=== PATIENT | male | born 1940 | race Caucasian/White ===

== ENCOUNTER 2017-12-16 12:08 | Emergency (ER) | payer OTHER ==
[2017-12-16] MEDS ORDERED: SILVER NITRATE APPLICATOR 1 APPL TP ONE (12:22)
[2017-12-16 12:36] LABS: PLATELET COUNT 175 10^3/uL (150-400)
[2017-12-16 12:46] LABS: INR 2.06 (0.83-1.16); PROTIME(PATIENT) 23.3 SEC (12.0-15.0)
--- NOTE | 2017-12-16 13:00 | EDPHY ---
General Time Seen by Provider: 12/16/17 12:54 Narrative: CHIEF COMPLAINT: Nosebleed HISTORY OF PRESENT ILLNESS: Patient arrives by EMS with complaints of nosebleed. This started spontaneously at 10:30 a.m. While at rest. He reports that he "had a sneezing fit," and he started bleeding from the right nostril. He did not tasting blood , nor was he having difficulty breathing or swallowing. He applied pressure with the bleeding did not stop, thus he called 911. He does take Coumadin for atrial fibrillation. At time of examination the nasal clip has been in place for nearly 2 hr. He thinks the bleeding has stopped. He has no bleeding from any other site. He has no chest pain, shortness of breath, lightheadedness or dizziness. No dark stools or bright red blood in stool. He has had previous nosebleeds in the past that stopped with pressure alone. REVIEW OF SYSTEMS: Ten systems reviewed and are negative unless otherwise noted in the HPI PCP: [place] [facility]: [facility] PAST MEDICAL HISTORY: Prostate cancer, atrial fibrillation, traumatic brain injury to, hypertension, diskitis PAST SURGICAL HISTORY: No recent surgeries SOCIAL HISTORY: Nonsmoker. Lives independently locally FAMILY HISTORY: Noncontributory EXAMINATION General Appearance: Alert, no distress Head: normocephalic, atraumatic Eyes: Pupils equal and round, no conjunctival pallor or injection ENT, Mouth: Mucous membranes moist. There is dried blood around the right nostril. Nasal speculum exam reveals no active bleeding. The airway is widely patent without any blood in the posterior pharynx, edema of the pharynx or abnormality of the floor of the mouth. Neck: Normal inspection, supple, non-tender Respiratory: Lungs are clear to auscultation Cardiovascular: Regular rate. No murmur. Gastrointestinal: Abdomen is soft and nontender Back: non-tender, no bony abnormalities Neurological: A&O, nonfocal, normal gait Skin: Warm and dry, no rash Extremities: Nontender, no pedal edema Psychiatric: Mood and affect normal DIFFERENTIAL DIAGNOSES: Including but not limited to anterior epistaxis, posterior epistaxis, warfarin coagulopathy, hypertension, anemia MDM: 12:50 p.m. Spontaneous right-sided epistaxis that has stopped with nasal clip at this time. He is anticoagulated with warfarin. His blood pressure is slightly elevated but he normally takes his medication evenings. He has no chest pain. He has no lightheadedness, dizziness or syncope. He has no bleeding from any other site or stools. I have removed the nasal clip and will monitor him for 15 min to recheck for any bleeding. 1:30 p.m. Patient re-evaluated. He has had the nasal clip off for over 30 min and has no bleeding at this time. I do not appreciate any bleeding in the posterior pharynx either. I did offer a prophylactic nasal packing and he has declined. He would like to be discharged home. We discussed the risks, benefits and alternatives to nasal packing and he is comfortable with assuming the wrist of going home without packing, including return of epistaxis and return to the emergency department. We discussed that his blood pressure was mildly elevated and that he should discuss this with his physician as he is otherwise asymptomatic at this time. I discussed that his hemoglobin and INR are within normal limits. We discussed avoiding any manipulation of the nose, blowing of the nose. We discussed return to ED precautions should his nose bleed return. He is comfortable this plan and discharged home stable condition. SUPERVISION: Patient was independently examined, but I discussed the case with my secondary supervising physician Dr. Pina - History Smoking Status: Former smoker - Objective Vital Signs: Initial Vital Signs Temperature (C) 97.9 F 12/16/17 12:15 Heart Rate 76 12/16/17 12:15 Respiratory Rate 18 12/16/17 12:15 Blood Pressure 184/134 H 12/16/17 12:15 O2 Sat (%) 96 12/16/17 12:15 O2 Delivery Mode Room Air Allergies/Adverse Reactions: No Known Allergies Allergy (Unverified 07/14/14 02:02) Home Medications: Medication Instructions Recorded Atenolol 07/14/14 Lisinopril 07/14/14 Keppra 12/16/17 Warfarin Sodium 12/16/17 Zytiga 12/16/17 Laboratory Results: Laboratory Results 12/16/17 12:00 Medications Given: Discontinued Medications Oxymetazoline HCl (Afrin Nasal [place]) 2 sprays EACHNARE EDNOW ONE Stop: 12/16/17 13:04 Last Admin: 12/16/17 14:05 Dose: 1 spray Tranexamic Acid (Cyklokapron) 500 mg TP EDNOW ONE Stop: 12/16/17 13:03 Last Admin: 12/16/17 14:05 Dose: Not Given Departure - Departure Disposition: Home, Routine, Self-Care Clinical Impression: Epistaxis, Warfarin-induced coagulopathy Condition: Good Instructions: Nosebleed (ED) Additional Instructions: 1. Avoid any manipulation or trauma to the 2. Contact your primary care physician regarding your blood pressure measurements here in your nose bleed 3. ED precautions for any return of nosebleed or bleeding from any other site Referrals: Patient,NotPresent [Unknown] - As per Instructions Juan Hansen MD [Medical Doctor] - As per Instructions
[2017-12-16] MEDS ORDERED: TRANEXAMIC ACID 1,000 MG/10 ML VIAL TP ONE (13:02)
[2017-12-16] MEDS ORDERED: OXYMETAZOLINE 30 ML NASAL SPRAY EACHNARE ONE (13:03)
[2017-12-16] MEDS ORDERED: ACETAMINOPHEN 500 MG TAB ONE (13:33)
[2017-12-16 13:49] VITALS: BP 162/105
== END 2017-12-16 14:04 | disposition home or self-care (01) ==
LOC: EDUNIT#
DX: R04.0 Epistaxis (principal); D68.9 Coagulation defect, unspecified; I10 Essential (primary) hypertension; Z79.01 Long term (current) use of anticoagulants; Z85.46 Personal history of malignant neoplasm of prostate; Z87.891 Personal history of nicotine dependence

== ENCOUNTER 2018-02-24 10:04 | Emergency (ER) | payer OTHER ==
[2018-02-24] MEDS ORDERED: TRANEXAMIC ACID 1,000 MG/10 ML VIAL TP ONE (10:12)
--- NOTE | 2018-02-24 10:21 | EDPHY ---
H & P Time Seen by Provider: 02/24/18 10:10 HPI/ROS: CHIEF COMPLAINT: Epistaxis HISTORY OF PRESENT ILLNESS: 77-year-old male presents to the emergency department by ambulance after having episode of epistaxis just 1 hr prior to arrival. The patient states that he was sitting at home reading a magazine and then developed an episode of epistaxis. The patient is on warfarin for chronic atrial fibrillation. He denies any known trauma or injury. Since foot in the clamp on his nose by EMS, it has stopped. Last nosebleed was about a year ago. ROS: Denies headache, dysphagia, chest pain or difficulty breathing. Past Medical/Surgical History: Chronic atrial fibrillation, orthopedic surgery, skin cancer, prostate cancer Social History: Single and lives in [place] Smoking Status: Former smoker Physical Exam: 157/91, heart rate 49, 91% on room air. Blood is noted in the posterior pharynx. No active bleeding from his nose. He does have an area of redness to the anterior septum of the right nostril with no active bleeding. No septal hematoma. Neck is supple without lymphadenopathy. Heart reveals irregularly irregular rhythm consistent with atrial fibrillation. No murmurs. Constitutional: Initial Vital Signs Temperature (C) 36.7 C 02/24/18 10:13 Heart Rate 49 L 02/24/18 10:13 Respiratory Rate 18 02/24/18 10:13 Blood Pressure 157/91 H 02/24/18 10:13 O2 Sat (%) 92 02/24/18 10:13 O2 Delivery Mode Room Air Allergies/Adverse Reactions: No Known Allergies Allergy (Unverified 07/14/14 02:02) Home Medications: Medication Instructions Recorded Atenolol 07/14/14 Lisinopril 07/14/14 Keppra 12/16/17 Warfarin Sodium 12/16/17 Zytiga 12/16/17 Levitra 02/24/18 MDM/Departure - MDM Procedures: After consent was obtained from the patient, silver nitrate was used to the anterior septum of the right nostril. The patient declined lidocaine and declined TXA since there was no active bleeding. Medications Given: Discontinued Medications Silver Nitrate/Potassium Nitrate (Silver Nitrate Applicator) 1 each TP EDNOW ONE Stop: 02/24/18 10:33 Last Admin: 02/24/18 10:47 Dose: 1 each Tranexamic Acid (Cyklokapron) 500 mg TP EDNOW ONE Stop: 02/24/18 10:13 Last Admin: 02/24/18 10:18 Dose: 500 mg ED Course/Re-evaluation: 77-year-old male presents to the emergency department with episode of epistaxis which is now mostly resolved. He had silver nitrate placed in the right nostril over Kiesselbach's plexus. He was observed for nearly 2 hr since he was waiting for his son to come pick him up and he had no recurring bleeding. He is comfortable being discharged home. His INR today was 1.8. He was encouraged to call his primary care provider with [facility] in follow-up on Tuesday. - Depart Disposition: Home, Routine, Self-Care Clinical Impression: Anterior epistaxis Condition: Good Instructions: Nosebleed (ED) Additional Instructions: Do not pick your nose, rub your nose, blow your nose for at least 48 hr. Call your primary care provider and tell them that you were seen in the emergency department for epistaxis and that your INR today is 1.8. Return to the emergency department if you developed recurring nose bleed or if you feel worse in any way. Referrals: [facility] ,. [Edm Groups for Call Sched] - As per Instructions
[2018-02-24] MEDS ORDERED: SILVER NITRATE APPLICATOR 1 APPL TP ONE ×2 (10:32)
[2018-02-24 10:42] LABS: INR 1.8 (0.83-1.16)
[2018-02-24 12:10] VITALS: BP 136/84
== END 2018-02-24 12:28 | disposition home or self-care (01) ==
LOC: EDUNIT#
PROC: 3E09XTZ Introduction of Destructive Agent into Nose, External Approach (ICD-10-PCS; principal; 2018-02-24)
DX: R04.0 Epistaxis (principal); Z79.01 Long term (current) use of anticoagulants; Z85.46 Personal history of malignant neoplasm of prostate; Z85.828 Personal history of other malignant neoplasm of skin; Z87.891 Personal history of nicotine dependence

== ENCOUNTER 2018-05-21 19:58 | Emergency (ER) | payer OTHER ==
--- NOTE | 2018-05-21 20:30 | EDPHY ---
General Time Seen by Provider: 05/21/18 20:24 Narrative: CHIEF COMPLAINT: Nosebleed HISTORY OF PRESENT ILLNESS: Patient presents with complaints of nosebleed. This started approximately 1 hr prior to arrival. He had started sneezing and noted bleeding from the right side. He applied a nose clip that he had at home in the bleeding did not stop for 30 min, thus he presents here. He also felt some bleeding in the back of his throat. No chest pain. No shortness of breath. No lightheadedness or loss of consciousness. No bleeding from any other site. He does take Coumadin for atrial fibrillation. He has been evaluated for nosebleed several times in the past with out need for surgical intervention. No other associated complaints or modifying factors. REVIEW OF SYSTEMS: 10 systems were reviewed and negative with the exception of the elements mentioned in the history of present illness. PCP: [facility]: [facility] PAST MEDICAL HISTORY: Atrial fibrillation, metastatic prostate cancer, hypertension, traumatic brain injury, diskitis PAST SURGICAL HISTORY: No recent surgical history SOCIAL HISTORY: Never smoker. Lives independently. FAMILY HISTORY: Noncontributory EXAMINATION: General Appearance: Alert, no distress. Conversing appropriately. Head: normocephalic, atraumatic Eyes: Pupils equal and round, no conjunctival pallor or injection ENT, Mouth: Airway widely patent. No drooling. No active bleeding in either nostril of the posterior pharynx. There is dried blood around both nostrils and in the posterior pharynx. Mucous membranes moist Neck: Normal inspection, supple, non-tender Respiratory: No retractions or distress Cardiovascular: Regular rate. Good signs of perfusion Neurological: A&O, nonfocal, normal gait Skin: Warm and dry, no rash. No petechiae or purpura. Multiple H spots Extremities: Nontender, no pedal edema Psychiatric: Flat affect. DIFFERENTIAL DIAGNOSES: Including but not limited to anterior epistaxis, posterior epistaxis, warfarin coagulopathy, acute blood-loss anemia MDM: 8:30 p.m. Acute anterior epistaxis in a patient with warfarin coagulopathy. I have administered topical lidocaine and Afrin and do not appreciate any active bleeding. He does not feel any posterior bleeding. I have visualized the pharynx and do not appreciate any bleeding myself. Nasal clip will remain in place and I will re-evaluate. We will verify his hematocrit, hemoglobin and INR. He is awake and alert. Conversing appropriately. Vital signs are within normal limits. He is managing his airway without any difficulties. 9:20 p.m. Hematocrit and hemoglobin are well within normal limits. INR is therapeutic at 2.34. I have re-evaluated the patient and removed the nasal clip at this time. I do not appreciate any active bleeding. I will monitor and recheck. Laboratory studies have been provided the hand show is physician that orders his Coumadin. 9:50 p.m. Patient re-evaluated. The nose clip has been off for 30 min and there is no bleeding. The patient is anxious to be discharged home. We discussed risks and benefits. We discussed prophylactic topical TXA verses rhino rocket and he has declined any further intervention. He would like to discharge home. We discussed applying the nasal clip if he bleeds again. We discussed avoidance of picking the nose, blowing the nose, manipulated the nose for 48 hr. We discussed head of bed elevation. We discussed cool air humidifier and nasal saline spray gently. I have answered all his questions. He is well-appearing and his son will drive him home. Discharged stable condition SUPERVISION: Patient was independently examined, but I discussed the case with my secondary supervising physician Dr. Azar CONSULTATION: None - History Smoking Status: Former smoker - Objective Vital Signs: Initial Vital Signs Temperature (C) 98.2 F 05/21/18 20:04 Heart Rate 52 L 05/21/18 20:04 Respiratory Rate 16 05/21/18 20:04 Blood Pressure 196/114 H 05/21/18 20:04 O2 Sat (%) 96 05/21/18 20:04 O2 Delivery Mode Room Air Allergies/Adverse Reactions: No Known Allergies Allergy (Unverified 07/14/14 02:02) Home Medications: Medication Instructions Recorded Atenolol 07/14/14 Lisinopril 07/14/14 Keppra 12/16/17 Warfarin Sodium 12/16/17 Levitra 02/24/18 Xtandi 05/21/18 Laboratory Results: 05/21/18 05/21/18 21:04 20:58 POC Hgb 14.3 gm/dL gm/dL (13.7-17.5) POC Hct 42 % % (40-51) PT 25.6 SEC H SEC (12.0-15.0) INR 2.34 H (0.83-1.16) APTT 32.1 SEC SEC (23.0-38.0) POC Sodium 141 mEq/L mEq/L (135-145) POC Potassium 4.5 mEq/L mEq/L (3.3-5.0) POC Chloride 102 mEq/L mEq/L (97-110) POC BUN 17 mg/dL mg/dL (7-23) POC Creatinine 0.5 mg/dL L mg/dL (0.7-1.3) POC Glucose 100 mg/dL mg/dL (70-100) Medications Given: Discontinued Medications Oxymetazoline HCl (Afrin Nasal [place]) 2 sprays EACHNARE EDNOW ONE Stop: 05/21/18 20:51 Last Admin: 05/21/18 20:53 Dose: 1 btl Silver Nitrate/Potassium Nitrate (Silver Nitrate Applicator) 1 each TP EDNOW ONE Stop: 05/21/18 20:51 Last Admin: 05/21/18 20:54 Dose: 1 each Point of Care Test Results: Chemistry 05/21/18 21:04 POC Sodium 141 mEq/L mEq/L (135-145) POC Potassium 4.5 mEq/L mEq/L (3.3-5.0) POC Chloride 102 mEq/L mEq/L (97-110) POC BUN 17 mg/dL mg/dL (7-23) POC Creatinine 0.5 mg/dL L mg/dL (0.7-1.3) POC Glucose 100 mg/dL mg/dL (70-100) ISTAT H&H 05/21/18 21:04 POC Hgb 14.3 gm/dL gm/dL (13.7-17.5) POC Hct 42 % % (40-51) Departure - Departure Disposition: Home, Routine, Self-Care Clinical Impression: Anterior epistaxis, Warfarin-induced coagulopathy Condition: Good Instructions: Nosebleed (ED), Blood Thinners (ED) Additional Instructions: 1. Do not blow your nose, pick your nose or manipulate your nose for 48 hr 2. Sleep with her head of bed elevated 45 3. Contact ENT and primary care physician tomorrow 4. If nose begins bleeding again, apply the nose clamp and weight 30 min. Return here if this does not stop the bleeding Referrals: SAKINA ADHIKARI [Other] - As per Instructions Enio Vital MD [Medical Doctor] - As per Instructions
[2018-05-21] MEDS ORDERED: OXYMETAZOLINE 30 ML NASAL SPRAY ONE (20:41)
[2018-05-21] MEDS ORDERED: SILVER NITRATE APPLICATOR 1 APPL TP ONE ×2 (20:49→20:50)
[2018-05-21] MEDS ORDERED: OXYMETAZOLINE 30 ML NASAL SPRAY EACHNARE ONE (20:50)
[2018-05-21 21:14] LABS: INR 2.34 (0.83-1.16); PROTIME(PATIENT) 25.6 SEC (12.0-15.0)
[2018-05-21 22:04] VITALS: BP 174/98
== END 2018-05-21 22:07 | disposition home or self-care (01) ==
PROC: 2Y41X5Z Packing of Nasal Region using Packing Material (ICD-10-PCS; principal; 2018-05-21)
DX: R04.0 Epistaxis (principal); I10 Essential (primary) hypertension; Z85.46 Personal history of malignant neoplasm of prostate; Z79.01 Long term (current) use of anticoagulants; Z87.891 Personal history of nicotine dependence
CPT/HCPCS: 82435-PO; 82565-PO; 82947-PO; 84132-PO; 84295-PO; 84520-PO; 85014-PO

== ENCOUNTER 2018-08-13 10:13 | Emergency (ER) | payer OTHER ==
--- NOTE | 2018-08-13 10:37 | EDPHY ---
H & P Stated Complaint: Recurring nose bleed;concern for ?blood in eye Time Seen by Provider: 08/13/18 10:36 HPI/ROS: HPI: This is a 77-year-old male who presents with Chief Complaint: Recurring nose bleed;concern for ?blood in eye Location: Right nose Quality: Bleeding Duration: Several hours Signs and Symptoms: no fever, no nausea, no vomiting, no photophobia, no noise sensitivity, no neck stiffness, no ear pain, no tinnitus, no nasal congestion, no sinus pressure, no weakness, no radiation, no aura Timing: Acute, constant Severity: [id number] Context: Patient presents with complaints of a nosebleed from his right nostril since waking up this morning. He reports that he had some nasal dryness and digitally manipulated his nose and then it started to bleed. Patient reports that he had a nosebleed yesterday as well that stopped with direct pressure. The nose bleed this morning continued for approximately 1-2 hours and would not stop with direct pressure so he came to the emergency room for further evaluation. History of atrial fibrillation on Coumadin and had his INR checked on Tuesday and was 2.0 Modifying Factors: Direct pressure Comment: ROS: A comprehensive 10 system review of systems is otherwise negative aside from elements mentioned in the history of present illness. MEDICAL/SURGICAL/SOCIAL HISTORY: Medical history: tbi- residual sz disorder, htn, discitis post dental surgery, prostate CA, a-fib, skin CA Surgical history: Denies Social history: Former smoker. Family history noncontributory. CONSTITUTIONAL: Slightly irritable of early white male, awake and alert, no obvious distress HEENT: Atraumatic and normocephalic, PERRL, EOMI. Nares patent; right anterior 3:00 a.m. Small active bleeding noted; no nasal mucosal edema. Tympanic membranes clear. Oropharynx clear, no exudate and moist pink mucosa. Airway patent. No lymphadenopathy. No meningismus. Cardiovascular: Normal S1/S2, regular rate, irregular rhythm, without murmur rub or gallop. PULMONARY/CHEST: Symmetrical and nontender. Clear to auscultation bilaterally. Good air movement. No accessory muscle usage. ABDOMEN: Soft, nondistended, nontender, no rebound, no guarding, no peritoneal signs, no masses or organomegaly. No CVAT. EXTREMITIES: 2/2 pulses, strength 5/5, no deformities, no clubbing, no cyanosis or edema. NEUROLOGICAL: no focal neuro deficits. GCS 15. SKIN: Warm and dry, no erythema. no rash. Good capillary refill. Source: Patient Exam Limitations: No limitations - Personal History Current Tetanus Diphtheria and Acellular Pertussis (TDAP): Yes - Medical/Surgical History Hx Asthma: No Hx Chronic Respiratory Disease: No Hx Diabetes: No Hx Cardiac Disease: Yes Hx Renal Disease: No Hx Cirrhosis: No Hx Alcoholism: No Hx HIV/AIDS: No Hx Splenectomy or Spleen Trauma: No Other PMH: tbi- residual sz disorder, htn, discitis post dental surg, prostate CA, a-fib, skin CA - Social History Smoking Status: Former smoker Constitutional: Initial Vital Signs Heart Rate 56 L 08/13/18 10:20 Respiratory Rate 18 08/13/18 10:20 Blood Pressure 142/89 H 08/13/18 10:20 O2 Sat (%) 97 08/13/18 10:20 O2 Delivery Mode Room Air Allergies/Adverse Reactions: No Known Allergies Allergy (Verified 08/13/18 10:23) Home Medications: Medication Instructions Recorded Atenolol 07/14/14 Lisinopril 07/14/14 Keppra 12/16/17 Warfarin Sodium 12/16/17 Levitra 02/24/18 Medical Decision Making Procedures: Procedure: Epistaxis control. After verbal consent was obtained, the patient was anesthetized with 4 mL of 1% lidocaine. The anterior epistaxis was identified in the right nostril at the 3 o'clock position. The patient was treated with TXA soaked rhino rocket 7.5 mm with balloon inflated to 4 mL. Following the procedure the patient was re- examined and the bleeding was well controlled. The patient tolerated the procedure well. The procedure was performed by myself. ED Course/Re-evaluation: Vital signs reviewed and blood pressure within normal limits. Direct pressure applied. 1% lidocaine used for anesthesia; T x-ray soaked rhino rocket with the balloon inflated to 4 mL inserted into right nostril with good hemostasis. Patient monitored for 2 hr and walked without resolution of bleeding. Patient will follow up with ENT in the next several days to have the packing removed. This patient was seen under the supervision of my secondary supervising physician. I evaluated care for this patient independently. Discussed this patient with Dr. Pina who did not see the patient. Differential Diagnosis: Differential diagnosis includes but is not limited to nasal dryness, trauma, digital manipulation, coagulopathy, tumor, sinusitis. - Data Points Medications Given: Discontinued Medications Tranexamic Acid (Cyklokapron) 500 mg TP EDNOW ONE Stop: 08/13/18 10:44 Last Admin: 08/13/18 10:48 Dose: 500 mg Departure - Departure Disposition: Home, Routine, Self-Care Clinical Impression: Chronic anticoagulation, Acute anterior epistaxis Condition: Good Instructions: Nosebleed (ED) Additional Instructions: Please keep packing in place until seen by ear nose and throat in the next 2-3 days. Please avoid blowing your nose or digital manipulation of your nose. Take Coumadin as directed. Referrals: SAKINA ADHIKARI MD [Other] - As per Instructions Juan Hansen MD [Medical Doctor] - As per Instructions
[2018-08-13] MEDS ORDERED: TRANEXAMIC ACID 1,000 MG/10 ML VIAL TP ONE (10:43)
[2018-08-13 11:52] VITALS: BP 135/72
== END 2018-08-13 12:13 | disposition home or self-care (01) ==
PROC: 2Y41X5Z Packing of Nasal Region using Packing Material (ICD-10-PCS; principal; 2018-08-13)
DX: R04.0 Epistaxis (principal)

== ENCOUNTER 2018-08-14 02:44 | Emergency (ER) | payer OTHER ==
--- NOTE | 2018-08-14 02:49 | EDPHY ---
H & P Time Seen by Provider: 08/14/18 02:49 HPI/ROS: HPI CHIEF COMPLAINT: Right nasal pain status post packing. HISTORY OF PRESENT ILLNESS: 77-year-old male, presents emergency room by ambulance he was seen here earlier yesterday morning around 10:00 a.m. With a nose bleed. At that time he had cauterization performed as well as a nasal packing in place. Presents back to the emergency room at 3:00 a.m. This morning with discomfort in his right nostril in tearing. No bleeding. States he is unable to sleep. States the discomfort is too great. Cannot get to sleep. Past Medical History: AFib on Coumadin Past Surgical History: No recent surgery Social History: Lives locally Family History: Noncontributory ROS REVIEW OF SYSTEMS: 10 Systems were reviewed and negative with the exception of the elements mentioned in the history of present illness. Exam Constitutional triage nursing summary reviewed, vital signs reviewed, awake/ alert. Eyes normal conjunctivae and sclera, EOMI, PERRLA. HENT right Cheng: Packing in place. No bleeding. normal inspection, atraumatic, moist mucus membranes, no epistaxis, neck supple/ no meningismus, no raccoon eyes. Respiratory clear to auscultation bilaterally, normal breath sounds, no respiratory distress, no wheezing. Cardiovascular rate normal, regular rhythm, no murmur, no edema, distal pulses normal. Gastrointestinal soft, non-tender, no rebound, no guarding, normal bowel sounds, no distension, no pulsatile mass. Genitourinary no CVA tenderness. Musculoskeletal no midline vertebral tenderness, full range of motion, no calf swelling, no tenderness of extremities, no meningismus, good pulses, neurovascularly intact. Skin pink, warm, & dry, no rash, skin atraumatic. Neurologic awake, alert and oriented x 3, AAOx3, moves all 4 extremities equally, motor intact, sensory intact, CN II-XII intact, normal cerebellar, normal vision, normal speech. Psychiatric normal mood/affect. Heme/Lymph/Immune no lymphadenopathy. Differential Diagnosis: Includes but is not limited to in a particular order right nostril discomfort from nasal packing and cauterization. Medical Decision Making: Patient complaining of increasing pain he was unable to sleep. Re-evaluation: 0255: I did remove some of the air out of the packing and this is much better. Still inflated and still occluding the nostril to help with hemostasis. He has no active bleeding at this time. I do recommend he follows up with ENT. Return precautions discussed with him. Source: Patient, EMS - Medical/Surgical History Hx Asthma: No Hx Chronic Respiratory Disease: No Hx Diabetes: No Hx Cardiac Disease: Yes Hx Renal Disease: No Hx Cirrhosis: No Hx Alcoholism: No Hx HIV/AIDS: No Hx Splenectomy or Spleen Trauma: No Other PMH: tbi- residual sz disorder, htn, discitis post dental surg, prostate CA, a-fib, skin CA - Social History Smoking Status: Former smoker Constitutional: Initial Vital Signs Temperature (C) 36.7 C 08/14/18 02:48 Heart Rate 87 08/14/18 02:48 Respiratory Rate 18 08/14/18 02:48 O2 Sat (%) 93 08/14/18 02:48 O2 Delivery Mode Room Air Allergies/Adverse Reactions: No Known Allergies Allergy (Verified 08/14/18 02:50) Home Medications: Medication Instructions Recorded Atenolol 07/14/14 Lisinopril 07/14/14 Keppra 12/16/17 Warfarin Sodium 12/16/17 Levitra 02/24/18 Departure - Departure Disposition: Home, Routine, Self-Care Clinical Impression: Nasal pain Condition: Good Instructions: Nosebleed (ED) Additional Instructions: 1. Return if worsening symptoms 2. Follow up with ENT. Referrals: Patient,NotPresent [Primary Care Provider] - As per Instructions Juan Hansen MD [Medical Doctor] - As per Instructions
[2018-08-14] MEDS ORDERED: ACETAMINOPHEN 500 MG TAB ONE (03:20)
[2018-08-14] MEDS ORDERED: ACETAMINOPHEN 500 MG TAB PO ONE (03:21)
[2018-08-14 03:46] VITALS: BP 182/113
== END 2018-08-14 03:32 | disposition home or self-care (01) ==
LOC: EDUNIT#
DX: J34.89 Other specified disorders of nose and nasal sinuses (principal); I10 Essential (primary) hypertension; I48.91 Unspecified atrial fibrillation; Z79.01 Long term (current) use of anticoagulants; Z87.891 Personal history of nicotine dependence

== ENCOUNTER 2019-02-02 23:38 | Observation (INO) | payer OTHER | END 2019-02-03 14:57 | disposition home or self-care (01) | LOC: F3N 02-03 02:34 ==